=== PATIENT | male | born 1980 | race Caucasian/White ===

== ENCOUNTER 2019-10-03 09:15 | Outpatient (CLI) | payer OTHER ==
[~2019-10-03 09:15] MED LIST: Magnevist 469MG/ML 20 ML VIAL ONE
[2019-10-03] MEDS ORDERED: Iopamidol 300 61% 50 ML VIAL FS ONE (09:40)
[2019-10-03] MEDS ORDERED: Gadobenate Dimeglumine 529 MG/1 ML (20ML VIAL) ONE (09:40)
[2019-10-03] MEDS ORDERED: EPINEPHrine 1 MG/ML AMP ONE (09:40)
[2019-10-03] MEDS ORDERED: Lidocaine 1% PF 10 ML AMP ONE (09:40)
--- NOTE | 2019-10-03 11:13 | RAD ---
Arthrogram right wrist HISTORY: Internal derangement. Wrist pain. FINDINGS: After explaining the procedure and answering all questions, the dorsal aspect of the right wrist was prepped and draped in usual sterile fashion. Sterile technique and fluoroscopic guidance were used to carefully advance a 25-gauge needle to the p osterior base of the scaphoid. Approximately 3 cc of a liquid mixture containing normal saline, 1% lidocaine, iodinated contrast, and small amounts of gadolinium and epinephrine were then instilled in to the joint capsule under fluoroscopic control. Needle was removed and spot images obtained. Patient tolerated the procedure well and was transferred to MRI in good condition for further imaging. IMPRESSION : Technically successful arthrogram right wrist. MRI is pending.
--- NOTE | 2019-10-03 11:36 | MRI ---
MR ARTHROGRAM RIGHT WRIST: DATE: 10/03/2019. PROVIDED CLINICAL HISTORY: Scapholunate ligamentous injury. FINDINGS: The dorsal extensor and volar flexor tendons demonstrate an intact MR appearance. There is contrast containing fluid present within the radiocarpal and mid carpal joint spaces. There is no contrast containing fluid within the distal radial ulnar joint. There is disruption of the dorsal component of the scapholunate ligament with extension to involve th e central, membranous component. Partial tearing of the volar component may be present. The dorsal and volar intrinsic and extrinsic wrist ligaments appear otherwise intact. There is no widening of t he scapholunate interval. There is abnormal signal present within the radial aspects of the TFC disk at its DRUJ surface compat ible with partial tear. The dorsal and volar radial ulnar ligaments and remainder of TFC complex johnny ear intact. No focal articular cartilage defect is apparent. Regional marrow and muscular signal appear normal. Alignment appears anatomic. IMPRESSION: 1. Disruption of the scapholunate ligament as described. 2. Partial thickness perforation of the triangular fibrocartilage disk at its distal radial ulnar max int surface. POS: DAREN
== END 2019-10-03 09:16 | disposition home or self-care (01) ==
LOC: RAD 09:15
PROVIDERS: ATTEND Student in an Organized Health Care Education/Training Program
DX: M25.531 Pain in right wrist (principal)
CPT/HCPCS: 25246; A9577; A9579; J0171; J2001; Q9967